=== PATIENT | female | born 1945 | race Caucasian/White ===

== ENCOUNTER 2017-10-28 17:29 | Emergency (ER) | payer OTHER ==
[2017-10-28] VITALS (10 sets, daily range): BP systolic 135–172; BP diastolic 56–89
[~2017-10-28] VITALS: Wt 92.5 kg
--- NOTE | ~2017-10-28 | EKG ---
[place], [place] ELECTROCARDIOGRAM REPORT NAME: KASHIF LUNA UNIT #: [id number] ROOM: DOCTOR: EPIPHANY DRAFT REPORT BIRTHDATE: [birth year] [facility] Test Date: 2017-10-28 Test Time: 17:50:44 Pat Name: KASHIF LUNA Department: Room: Gender: F [employer]: : 1945 Requested By: MERLINE WILEY Order Number: [id number] Reading MD: Kenneth Ly MD Measurements Intervals [place] Rate: 72 P: 53 ID: [id number] QRS: 83 QRSD: 159 T: 45 QT: 472 QTc: 517 Interpretive Statements Sinus rhythm Right bundle branch block Electronically Signed On 10-29-2017 9:41:54 PDT by Kenneth Ly MD CM:EKGRPT:ELECTROCARDIOGRAM REPORT 1750 [id number] MERLINE BROWN DRAFT REPORT MERLINE WILEY M.D.
[2017-10-28 17:53] LABS: ABG BASE EXCESS 2.2 mmol/L (-2.0-2.0); ABG O2 SATURATION 88.2 % (95-97); ARTERIAL BLOOD GAS PCO2 46.6 mmHg (35-45); ARTERIAL BLOOD GAS PH 7.381 (7.35-7.45); ARTERIAL BLOOD GAS PO2 60.3 mmHg (80-90)
[2017-10-28 18:06] LABS: HEMATOCRIT 30.6 % (37.0-47.0); HEMOGLOBIN 8.5 g/dl (12.0-16.0); MEAN CORPUSCULAR HGB 22.8 pg (27.0-31.0); MEAN CORPUSCULAR HGB CONC 27.8 g/dl (33.0-37.0); MEAN PLATELET VOLUME 10.4 fl (9.6-12.3); PLATELET COUNT AUTOMATED 339 10*3/uL (130-400); RED BLOOD COUNT 3.73 10*6/uL (4.10-5.10)
[2017-10-28] MEDS ORDERED: CLEOCIN HCL300 MG PO ×2 (18:14→18:38)
[2017-10-28 18:16] LABS: ACT PARTIAL THROMBO TIME 24.3 SECONDS (20.8-31.5)
[2017-10-28 18:33] LABS: ALBUMIN 3.1 gm/dl (3.1-4.5); CREATININE 1.19 mg/dL (0.55-1.02); POTASSIUM 5.3 mmol/L (3.5-5.1); TOTAL PROTEIN 6.9 gm/dL (6.4-8.2)
[2017-10-28] MEDS ORDERED: VITAMIN D22000 UNIT PO (18:38)
[2017-10-28] MEDS ORDERED: TRESIBA FL200 UNIT/1 SQ (18:48)
[2017-10-28] MEDS ORDERED: Lovenox40 MG/0.4 PO (18:49)
[2017-10-28] MEDS ORDERED: PRAVASTATIN SOD10 MG PO (18:50)
[2017-10-28] MEDS ORDERED: OMEPRAZOLE MAGN20 MG PO (18:50)
[2017-10-28] MEDS ORDERED: NYSTATIN CREAM15 GM T (18:51)
[2017-10-28] MEDS ORDERED: BREO ELLIPTA 21 EACH INH (18:51)
[2017-10-28] MEDS ORDERED: CYMBALTA30 MG PO (18:52)
[2017-10-28] MEDS ORDERED: HUMALOG MI100 UNIT/1 SQ (18:52)
[2017-10-28 19:23] LABS: PLATELET SUFFICIENCY NORMAL (NORMAL); TOTAL CELLS COUNTED 100 #CELLS
[2017-10-28 19:25] LABS: OVALOCYTES FEW; POLYCHROMASIA SLIGHT
== END 2017-10-29 00:51 | disposition short-term general hospital (02) ==
LOC: ED 17:29 → EDHOLD 18:57 → ED 10-29 00:51
PROVIDERS: Emergency Medicine
DX: J96.90 Respiratory failure, unspecified, unspecified whether with hypoxia or hypercapnia (principal); J18.9 Pneumonia, unspecified organism; I50.9 Heart failure, unspecified; J44.9 Chronic obstructive pulmonary disease, unspecified; Z88.0 Allergy status to penicillin; Z88.1 Allergy status to other antibiotic agents; Z88.8 Allergy status to other drugs, medicaments and biological substances; Z79.899 Other long term (current) drug therapy

== ENCOUNTER → 2017-10-28 | Outpatient (CLI) | payer OTHER ==
[~2017-10-28] MED LIST: BREO ELLIPTA 21 EACH INH; CLEOCIN HCL300 MG PO; CYMBALTA30 MG PO; HUMALOG MI100 UNIT/1 SQ; Lovenox40 MG/0.4 PO; NYSTATIN CREAM15 GM T; OMEPRAZOLE MAGN20 MG PO; PRAVASTATIN SOD10 MG PO; TRESIBA FL200 UNIT/1 SQ; VITAMIN D22000 UNIT PO
== END | disposition home or self-care (01) ==
LOC: RAD 12:58
DX: J18.9 Pneumonia, unspecified organism (principal); I51.7 Cardiomegaly